=== PATIENT | female | born 1985 | race Caucasian/White ===

== ENCOUNTER 2016-08-11 16:11 | Emergency (ER) | payer OTHER, SELFPAY ==
[~2016-08-11] VITALS: Ht 157.5 cm; Wt 72.5 kg
[2016-08-11 16:19] VITALS: BP 101/50
[2016-08-11] MEDS ORDERED: FLUORESCEIN OPHTHALMIC 1 MG STRIP ONE (16:52)
[2016-08-11] MEDS ORDERED: HYDROmorphone 1 MG/ML, 1ML ONE (17:06)
== END 2016-08-11 17:26 | disposition home or self-care (01) ==
LOC: ED 17:20
DX: B02.9 Zoster without complications (principal); L71.0 Perioral dermatitis
CPT/HCPCS: 99283

== ENCOUNTER → 2016-11-11 | Outpatient (CLI) | payer OTHER ==
[~2016-11-11] MED LIST: OMNIPAQUE 350 MG/ML, 100ML BOTTLE ONE
== END | disposition home or self-care (01) ==
LOC: RAD 15:54
PROVIDERS: ATTEND Nurse Practitioner Family
DX: J98.11 Atelectasis (principal); Z90.49 Acquired absence of other specified parts of digestive tract
CPT/HCPCS: 71275; Q9967

== ENCOUNTER 2019-01-13 18:25 | Emergency (ER) | payer OTHER ==
[~2019-01-13] VITALS: Ht 157.5 cm; Wt 73.0 kg
[2019-01-13] MEDS ORDERED: LORazepam 1MG TABLET ONE (18:41)
--- NOTE | 2019-01-13 18:47 | NUR ---
PHOEBE ORELLANA AT BEDSIDE TO GET STATEMENT FROM PT
[2019-01-13] MEDS ORDERED: KETOROLAC 30 MG/1 ML ONE (18:50)
--- NOTE | 2019-01-13 18:53 | NUR ---
PT TO XRAY AT THIS TIME, PT MEDICATED PER MAR
[2019-01-13] MEDS ORDERED: KETOROLAC 30 MG/1 ML IM ONE (19:00)
[2019-01-13] MEDS ORDERED: LORazepam 1MG TABLET PO ONE (19:00)
--- NOTE | 2019-01-13 19:41 | NUR ---
ALL RESULTS BACK AT THIS TIME, CHART UP FOR RECHECK
[2019-01-13 19:51] VITALS: BP 115/76
== END 2019-01-13 19:53 | disposition home or self-care (01) ==
LOC: ED 19:33
DX: S16.1XXA Strain of muscle, fascia and tendon at neck level, initial encounter (principal); S60.222A Contusion of left hand, initial encounter; S80.12XA Contusion of left lower leg, initial encounter; G89.11 Acute pain due to trauma; R07.89 Other chest pain; F41.1 Generalized anxiety disorder; J45.909 Unspecified asthma, uncomplicated; V49.49XA Driver injured in collision with other motor vehicles in traffic accident, initial encounter; Y93.89 Activity, other specified; Y92.89 Other specified places as the place of occurrence of the external cause; Y99.8 Other external cause status
CPT/HCPCS: 71045; 72020; 72050; 73130; 73590; 93005; 96372; 99283; J1885